=== PATIENT | female | born 1965 | race Caucasian/White ===

== ENCOUNTER 2016-10-04 09:41 | Emergency (ER) | payer BC | END 2016-10-04 10:50 | disposition home or self-care (01) | LOC: ER 09:41 | DX: R07.89 Other chest pain (principal); R05 Cough; R06.02 Shortness of breath; F31.9 Bipolar disorder, unspecified; G43.909 Migraine, unspecified, not intractable, without status migrainosus; F17.210 Nicotine dependence, cigarettes, uncomplicated; Z90.49 Acquired absence of other specified parts of digestive tract; Z90.710 Acquired absence of both cervix and uterus; Z88.6 Allergy status to analgesic agent; Z88.8 Allergy status to other drugs, medicaments and biological substances | CPT/HCPCS: 96374 ==